=== PATIENT | male | born 1995 | race Caucasian/White ===

== ENCOUNTER 2017-07-02 02:20 | Emergency (ER) | payer SELFPAY ==
[~2017-07-02] VITALS: Ht 185.4 cm; Wt 73.0 kg
[2017-07-02 04:22] VITALS: BP 109/64
== END 2017-07-02 06:20 | disposition left against medical advice (07) ==
LOC: ER 02:20
DX: R51 Headache (principal); I10 Essential (primary) hypertension; Z53.21 Procedure and treatment not carried out due to patient leaving prior to being seen by health care provider